=== PATIENT | female | born 1955 | race Caucasian/White ===

== ENCOUNTER 2018-02-16 09:02 | Emergency (ER) | payer MEDICAID ==
[~2018-02-16] VITALS: Ht 163.8 cm; Wt 122.6 kg
[~2018-02-16 09:02] MED LIST: ALBU18HF INH; ASPI-515 PO; ASPI-621 PO; ASPI325T80 PO; ATOR10TA9 PO; B12 COMPLEX PO; BACL-19 PO; BACL20TA PO; CIPR500T87 PO; COQ10 PO; GABA-826 PO; KETO10TA PO; MAGNESIUM PO; NAPR-685 PO; ONDA4TAB12 PO; OXYC-302 PO; OXYC-307 PO; SIMV40TA PO; TRAM50TA2 PO; VITAMIN D3 PO
[2018-02-16] MEDS ORDERED: ALBUTEROL SULFATE 2.5 MG/3 ML NPPB ONE (10:00)
[2018-02-16] MEDS ORDERED: ALBUTEROL SULFATE 2.5 MG/3 ML ONE (10:03)
[2018-02-16 10:17] LABS: BASOPHILS # (AUTO) 0.04 x10^3/uL (0-0.1); BASOPHILS % (AUTO) 1 % (0-1); EOSINOPHILS % (AUTO) 3 % (1-7); LYMPHOCYTES # (AUTO) 1.68 x10^3/uL (1-3.4); LYMPHOCYTES % (AUTO) 21 % (22-44); MD NO; MEAN CORPUSCULAR HEMOGLOBIN 29.3 pg (27.0-34.8); MEAN CORPUSCULAR HGB CONC 32.5 g/dL (32.4-35.8); MEAN CORPUSCULAR VOLUME 90.2 fL (80-100); MONOCYTES # (AUTO) 0.59 x10^3/uL (0.2-0.8); MONOCYTES % (AUTO) 7 % (2-9); NEUTROPHILS # (AUTO) 5.63 x10^3/uL (1.8-6.8); NEUTROPHILS % (AUTO) 69 % (42-75); PLATELET COUNT 324 x10^3/uL (130-400); RED BLOOD COUNT 4.86 x10^6/uL (3.82-5.3); RED CELL DISTRIBUTION WIDTH 16.9 % (9.6-15.2)
[2018-02-16 10:19] LABS: CULTURE INDICATED? YES; MICROSCOPIC INDICATED
[2018-02-16 10:29] LABS: ALBUMIN 3.2 g/dL (3.4-5.0); ANION GAP 5 mmol/L (5-15); CALCIUM 8.7 mg/dL (8.5-10.1); CHLORIDE 107 mmol/L (98-107); CREATININE 1.43 mg/dL (0.55-1.02)
[2018-02-16 10:32] LABS: TROPONIN I < 0.015 ng/mL (0.000-0.045)
[2018-02-16] MEDS ORDERED: OMNIPAQUE 350 MG/ML, 150 ML BOTTLE ONE (12:25)
[2018-02-16 13:58] VITALS: BP 134/73
== END 2018-02-16 13:56 | disposition home or self-care (01) ==
LOC: ED 12:46
DX: R07.89 Other chest pain (principal); J20.8 Acute bronchitis due to other specified organisms; B96.89 Other specified bacterial agents as the cause of diseases classified elsewhere; R82.99 Other abnormal findings in urine
CPT/HCPCS: 36415; 71046; 71275; 80048; 81001; 82040; 83880; 84484; 85025; 85379; 87040; 87077; 87086; 93005; 94640; 99285; J7512; Q9967; 87186; J7613

== ENCOUNTER 2018-08-27 04:37 | Emergency (ER) | payer MEDICAID ==
[~2018-08-27] VITALS: Ht 162.6 cm; Wt 120.0 kg
[2018-08-27 04:40] VITALS: BP 140/92
[2018-08-27] MEDS ORDERED: OXYcodone/APAP 5/325MG TABLET PO ONE (05:00)
[2018-08-27] MEDS ORDERED: OXYcodone/APAP 5/325MG TABLET ONE (05:09)
== END 2018-08-27 06:19 | disposition home or self-care (01) ==
LOC: ED 06:13
DX: S83.421A Sprain of lateral collateral ligament of right knee, initial encounter (principal); Z86.73 Personal history of transient ischemic attack (TIA), and cerebral infarction without residual deficits; X58.XXXA Exposure to other specified factors, initial encounter; Y93.89 Activity, other specified; Y99.8 Other external cause status; Y92.89 Other specified places as the place of occurrence of the external cause
CPT/HCPCS: 99284

== ENCOUNTER 2019-01-04 10:42 | Emergency (ER) | payer MEDICAID ==
[~2019-01-04] VITALS: Ht 162.6 cm; Wt 121.5 kg
[~2019-01-04 10:42] MED LIST changes: -ASPI-621 PO; +ASPI81TA45 PO
[2019-01-04 11:22] LABS: BASOPHILS # (AUTO) 0.08 x10^3/uL (0-0.1); BASOPHILS % (AUTO) 1 % (0-1); EOSINOPHILS # (AUTO) 0.32 x10^3/uL (0-0.4); EOSINOPHILS % (AUTO) 4 % (1-7); LYMPHOCYTES # (AUTO) 1.63 x10^3/uL (1-3.4); LYMPHOCYTES % (AUTO) 18 % (22-44); MD NO; MEAN CORPUSCULAR HEMOGLOBIN 29.4 pg (27.0-34.8); MEAN CORPUSCULAR VOLUME 91.8 fL (80-100); MEAN PLATELET VOLUME 8.4 fL (7.4-10.4); MONOCYTES # (AUTO) 0.55 x10^3/uL (0.2-0.8); MONOCYTES % (AUTO) 6 % (2-9); NEUTROPHILS # (AUTO) 6.44 x10^3/uL (1.8-6.8); NEUTROPHILS % (AUTO) 71 % (42-75); PLATELET COUNT 739 x10^3/uL (130-400); RED BLOOD COUNT 3.97 x10^6/uL (3.82-5.3); RED CELL DISTRIBUTION WIDTH 16.3 % (9.6-15.2)
[2019-01-04 11:30] LABS: ANION GAP 6 mmol/L (5-15); CALCIUM 9.6 mg/dL (8.5-10.1); CHLORIDE 106 mmol/L (98-107); CREATININE 1.52 mg/dL (0.55-1.02)
[2019-01-04 11:33] LABS: TROPONIN I < 0.015 ng/mL (0.000-0.045)
--- NOTE | 2019-01-04 11:40 | NUR ---
TO ROOM FROM LOBBY. NAD.
--- NOTE | 2019-01-04 11:43 | NUR ---
Pt with instructional technology facilitator in room moving from wheelchair to gurney.
--- NOTE | 2019-01-04 11:58 | NUR ---
First contact with pt. Pt resting on gurney connected to all monitors. All safety measures in place. Pt c/o abdominal pain and epigastric pain with radiation to her back for the past 2 days. Pt states she had right knee surgery recently and was consitpated earlier in the week, but last bowel movement was yesterday. Pt denies trauma, vomitting, diarrhea, fevers, cp, sob. Pt states she feels nauseated and "feels like ." No needs expressed at this time.
[2019-01-04] MEDS ORDERED: DOCU100C33 PO (12:09)
[2019-01-04] MEDS ORDERED: CEPH-368 PO (12:09)
[2019-01-04] MEDS ORDERED: ACET500T76 PO (12:09)
[2019-01-04] MEDS ORDERED: ASPI325T17 PO (12:09)
[2019-01-04] MEDS ORDERED: OXYC15TA PO (12:09)
[2019-01-04] MEDS ORDERED: DIAZ5TAB4 PO (12:09)
[2019-01-04] MEDS ORDERED: NAPR500T8 PO (12:09)
[2019-01-04] MEDS ORDERED: MAALOX/HYOSCYAMINE/LIDOCAINE 45 ML BTL ONE (12:20)
--- NOTE | 2019-01-04 12:23 | NUR ---
TASK RN: PT MED NOTED FOR EPIGASTRIC PAIN 03/03. CALL LIGHT W/I REACH, VSS.
[2019-01-04] MEDS ORDERED: MAALOX/HYOSCYAMINE/LIDOCAINE 45 ML BTL PO ONE (12:30)
[2019-01-04 12:48] LABS: BILIRUBIN, DIRECT 0.2 mg/dL (0.1-0.2); BILIRUBIN,INDIRECT 0.4 mg/dL (0.0-2.0); BILIRUBIN,TOTAL 0.6 mg/dL (0.2-1.0); TOTAL PROTEIN 8.1 g/dL (6.4-8.2)
--- NOTE | 2019-01-04 13:32 | NUR ---
Pt at ultrasound at this time.
[2019-01-04 14:33] VITALS: BP 120/75
--- NOTE | 2019-01-04 14:33 | NUR ---
Patient/Caregiver given discharge instructions and they have confirmed that they understand the instructions. Patient ambulatory with steady gait.
== END 2019-01-04 14:37 | disposition home or self-care (01) ==
LOC: ED 13:36
DX: K25.3 Acute gastric ulcer without hemorrhage or perforation (principal); Z86.73 Personal history of transient ischemic attack (TIA), and cerebral infarction without residual deficits; Z96.651 Presence of right artificial knee joint
CPT/HCPCS: 36415; 71045; 80048; 80076; 82040; 83690; 84484; 85025; 86677; 93005; 93970; 99284

== ENCOUNTER 2019-02-24 19:09 | Emergency (ER) | payer MEDICAID ==
[~2019-02-24] VITALS: Ht 162.6 cm; Wt 118.1 kg
[~2019-02-24 19:09] MED LIST changes: +ACET500T76 PO; +ASPI325T17 PO; +CEPH-368 PO; +DIAZ5TAB4 PO; +DOCU100C33 PO; +NAPR500T8 PO; +OXYC15TA PO
[2019-02-24] MEDS ORDERED: PANT40TA5 PO (19:56)
[2019-02-24] MEDS ORDERED: SUCR1TAB PO (19:56)
--- NOTE | 2019-02-24 19:59 | NUR ---
PT HERE FOR EPIGASTRIC CP WITH SOB. PT REPORTS CHEST PAIN RADIATES TO BACK. PT RECENTLY HAD KNEE SURGERY. PT OUT OF GERDS MEDICAITONS. PT DOES HAVE NAUSEA per triage note
[2019-02-24] MEDS ORDERED: SODIUM CHLORIDE FLUSH 10ML SYR IVF ONE (20:00)
[2019-02-24] MEDS ORDERED: ONDANSETRON 2MG/ML, 2ML IVPush ONE (20:00)
[2019-02-24 20:04] LABS: BASOPHILS # (AUTO) 0.04 x10^3/uL (0-0.1); BASOPHILS % (AUTO) 0 % (0-1); EOSINOPHILS # (AUTO) 0.14 x10^3/uL (0-0.4); EOSINOPHILS % (AUTO) 1 % (1-7); LYMPHOCYTES # (AUTO) 1.81 x10^3/uL (1-3.4); LYMPHOCYTES % (AUTO) 15 % (22-44); MD NO; MEAN CORPUSCULAR HGB CONC 32.7 g/dL (32.4-35.8); MEAN CORPUSCULAR VOLUME 88.6 fL (80-100); MEAN PLATELET VOLUME 8.6 fL (7.4-10.4); MONOCYTES % (AUTO) 6 % (2-9); NEUTROPHILS # (AUTO) 9.77 x10^3/uL (1.8-6.8); NEUTROPHILS % (AUTO) 78 % (42-75); PLATELET COUNT 391 x10^3/uL (130-400); RED BLOOD COUNT 4.51 x10^6/uL (3.82-5.3); RED CELL DISTRIBUTION WIDTH 16.4 % (9.6-15.2)
[2019-02-24 20:13] LABS: ALANINE AMINOTRANSFERASE 21 U/L (12-78); ALBUMIN 3.4 g/dL (3.4-5.0); ANION GAP 9 mmol/L (5-15); CALCIUM 9.4 mg/dL (8.5-10.1); CHLORIDE 107 mmol/L (98-107); CREATININE 1.57 mg/dL (0.55-1.02)
[2019-02-24 20:17] LABS: ALKALINE PHOSPHATASE 108 U/L (45-117); BILIRUBIN,TOTAL 0.6 mg/dL (0.2-1.0); TROPONIN I < 0.015 ng/mL (0.000-0.045)
[2019-02-24] MEDS ORDERED: MAALOX/HYOSCYAMINE/LIDOCAINE 45 ML BTL PO ONE (20:30)
[2019-02-24] MEDS ORDERED: MORPHINE SULFATE 4 MG/ML, 1ML IVPush PRN (20:30)
[2019-02-24] MEDS ORDERED: MAALOX/HYOSCYAMINE/LIDOCAINE 45 ML BTL ONE (21:02)
[2019-02-24] MEDS ORDERED: MORPHINE SULFATE 4 MG/ML, 1ML ONE ×2 (21:02→21:37)
[2019-02-24] MEDS ORDERED: ONDANSETRON 2MG/ML, 2ML ONE (21:02)
--- NOTE | 2019-02-24 21:14 | NUR ---
given med us at bed side
[2019-02-24] MEDS ORDERED: LORazepam 2 MG/ML, 1ML ONE (21:39)
--- NOTE | 2019-02-24 21:45 | NUR ---
given ativan iv for pt's extremely pain
[2019-02-24] MEDS ORDERED: KETOROLAC 30 MG/1 ML ONE (21:57)
[2019-02-24] MEDS ORDERED: LORazepam 2 MG/ML, 1ML IVPush ONE (22:00)
[2019-02-24] MEDS ORDERED: OMNIPAQUE 350 MG/ML, 100ML BOTTLE ONE (22:00)
[2019-02-24] MEDS ORDERED: KETOROLAC 30 MG/1 ML IVPush ONE (22:00)
--- NOTE | 2019-02-24 22:59 | NUR ---
pt is resting vss
[2019-02-24 23:28] VITALS: BP 98/56
--- NOTE | 2019-02-24 23:28 | NUR ---
given dc instruction pt understood
[2019-02-25] MEDS ORDERED: IBUP200T49 PO (18:30)
== END 2019-02-24 23:30 | disposition home or self-care (01) ==
LOC: ED 20:39
DX: K80.20 Calculus of gallbladder without cholecystitis without obstruction (principal); E66.9 Obesity, unspecified; Z68.41 Body mass index [BMI] 40.0-44.9, adult; Z98.51 Tubal ligation status; Z87.11 Personal history of peptic ulcer disease; Z86.73 Personal history of transient ischemic attack (TIA), and cerebral infarction without residual deficits
CPT/HCPCS: 36415; 71045; 71275; 76700; 80053; 83690; 84484; 85025; 93005; 96374; 96375; 99284; J1885; J2060; J2405; Q9967

== ENCOUNTER 2019-02-25 17:35 | Inpatient (IN) | payer MEDICAID ==
[~2019-02-25] VITALS: Ht 162.6 cm; Wt 112.2 kg
[~2019-02-25 17:35] MED LIST changes: +PANT40TA5 PO; +SUCR1TAB PO
[2019-02-25] MEDS ORDERED: PLEASE ENTER HEIGHT AND WEIGHT MC SCH (18:00)
[2019-02-25] MEDS ORDERED: HYDROmorphone 2 MG/ML, 1ML IVPush PRN (18:00)
[2019-02-25] MEDS ORDERED: SODIUM CHLORIDE FLUSH 10ML SYR IVF ONE ×2 (18:00→19:00)
[2019-02-25] MEDS ORDERED: ONDANSETRON 2MG/ML, 2ML IVPush ONE (18:00)
[2019-02-25] MEDS ORDERED: ONDANSETRON 2MG/ML, 2ML ONE (18:10)
[2019-02-25] MEDS ORDERED: HYDROmorphone 1 MG/ML, 1ML VIAL ONE (18:11)
[2019-02-25 18:12] LABS: BASOPHILS # (AUTO) 0.01 x10^3/uL (0-0.1); BASOPHILS % (AUTO) 0 % (0-1); EOSINOPHILS # (AUTO) 0.04 x10^3/uL (0-0.4); EOSINOPHILS % (AUTO) 0 % (1-7); LYMPHOCYTES # (AUTO) 1.25 x10^3/uL (1-3.4); LYMPHOCYTES % (AUTO) 7 % (22-44); MD NO; MEAN CORPUSCULAR HEMOGLOBIN 28.6 pg (27.0-34.8); MEAN CORPUSCULAR HGB CONC 32.3 g/dL (32.4-35.8); MEAN CORPUSCULAR VOLUME 88.4 fL (80-100); MEAN PLATELET VOLUME 9.1 fL (7.4-10.4); MONOCYTES % (AUTO) 2 % (2-9); NEUTROPHILS # (AUTO) 15.81 x10^3/uL (1.8-6.8); NEUTROPHILS % (AUTO) 90 % (42-75); PLATELET COUNT 415 x10^3/uL (130-400); RED BLOOD COUNT 4.55 x10^6/uL (3.82-5.3); RED CELL DISTRIBUTION WIDTH 16.5 % (9.6-15.2)
--- NOTE | 2019-02-25 18:14 | NUR ---
SEVERE ABD PAIN STARTING 30M AGO AFTER EATING, DIAGNOSED W/GALLSTONES YESERDAY/ REPORTS RECENT DX OF GASTRITIS/ESOPHAGITIS WELL. VOMITING. NO DIARRHEA. BM THIS AM. HAD BROTH AT NOON (6 HOURS AGO.) IN 09/02 PAIN/CRYING/HR 106. PIV STARTED AND ADMINISTERED DILAUDID/ZOFRAN
[2019-02-25 18:16] LABS: ALANINE AMINOTRANSFERASE 17 U/L (12-78); ALBUMIN 3.2 g/dL (3.4-5.0); ANION GAP 10 mmol/L (5-15); CALCIUM 9.2 mg/dL (8.5-10.1); CHLORIDE 106 mmol/L (98-107); CREATININE 1.66 mg/dL (0.55-1.02)
[2019-02-25 18:18] LABS: ALKALINE PHOSPHATASE 110 U/L (45-117); BILIRUBIN,TOTAL 0.7 mg/dL (0.2-1.0)
[2019-02-25] MEDS ORDERED: IBUP200T49 PO (18:30)
--- NOTE | 2019-02-25 18:34 | NUR ---
PROVIDER TO BEDSIDE- REQUEST 1L NS BOLUS BE STARTED-ADMINISTERED TO CHART ONCE ORDER PLACED
--- NOTE | 2019-02-25 18:55 | NUR ---
PATIENT IN CONTINUED 8/10 PAIN. CRYING/MOANING. HOWEVER, POC 84% AND BP 100/51 AFTER 1L NS. SHREDDING MACHINE OPERATOR HESISTANT TO FURTHER MEDICATE. PROVIDER MADE AWARE AND TO RE-ASSESS. PATIENT HELPED TO RE-POSITION WITH MINIMAL RELIEF. PLACED ON 2L NC FOR POX.. SIDE RAILS UPW/ CALL EMERSON IN HAND. WILL CONTINUE TO ASSESS CLOSELY
[2019-02-25] MEDS ORDERED: SODIUM CHLORIDE 0.9% 1,000ML IVBOLUS ONE (19:00)
--- NOTE | 2019-02-25 19:26 | NUR ---
REPORTS PAIN IMPROVED TO 2/10, POX 97 % ON 2L NC, B/P 95/43. HOSPITALIST (DR. BRAVO) AT BEDSIDE TO ADMIT. ON SIGNALS INTELLIGENCE SUPERINTENDENT W/ CALL EMERSON IN HAND/SIDE RAILS UP
[2019-02-25] MEDS ORDERED: CEFOTETAN PMX 2GM/50ML 50 ML IV ONE ×2 (19:30→20:30)
[2019-02-25] MEDS ORDERED: CEFOTETAN PMX 1GM/50ML 0 ML ONE (19:45)
--- NOTE | 2019-02-25 19:55 | NUR ---
ABX/MAINT IVF STARTED BY JOHNNY, PATIENT CONTINUES TO REPORT PAIN DEMINISHED TO 01/03. VSS ON 2L NC. ON MONITOR W/ CALL EMERSON IN HAND/ SIDE RAILS UP. TO WATCH FOR BED ASSIGNMENT
[2019-02-25] MEDS: SODIUM CHLORIDE 0.9% 1,000 ML IV SCH (19:57)
[2019-02-25] MEDS ORDERED: ONDANSETRON 2MG/ML, 2ML IVPush PRN (20:00)
[2019-02-25] MEDS ORDERED: morphine SULFATE 10 MG/ML, 1ML IVPush PRN (20:00)
--- NOTE | 2019-02-25 20:05 | NUR ---
DANIEL RN: PT MEDICATED PER EMAR. 5 RIGHTS ADDRESSED.
[2019-02-25 21:30] VITALS: BP 92/61
[2019-02-25] MEDS ORDERED: MORPHINE SULFATE 4 MG/ML, 1ML ONE (21:52)
[2019-02-26] VITALS (11 sets, daily range): BP systolic 84–118; BP diastolic 50–80
[2019-02-26] MEDS: SODIUM CHLORIDE 0.9% 1,000 ML IV SCH (02:00)
[2019-02-26 06:02] LABS: ANION GAP 8 mmol/L (5-15); CALCIUM 8.4 mg/dL (8.5-10.1)
[2019-02-26 06:03] LABS: CREATININE 1.57 mg/dL (0.55-1.02)
[2019-02-26 06:09] LABS: BASOPHILS # (AUTO) 0.06 x10^3/uL (0-0.1); BASOPHILS % (AUTO) 1 % (0-1); CHLORIDE 113 mmol/L (98-107); EOSINOPHILS # (AUTO) 0.11 x10^3/uL (0-0.4); EOSINOPHILS % (AUTO) 1 % (1-7); LYMPHOCYTES # (AUTO) 1.63 x10^3/uL (1-3.4); LYMPHOCYTES % (AUTO) 14 % (22-44); MD NO; MEAN CORPUSCULAR HEMOGLOBIN 28.3 pg (27.0-34.8); MEAN CORPUSCULAR HGB CONC 31.7 g/dL (32.4-35.8); MEAN CORPUSCULAR VOLUME 89.1 fL (80-100); MEAN PLATELET VOLUME 9.2 fL (7.4-10.4); MONOCYTES # (AUTO) 0.84 x10^3/uL (0.2-0.8); MONOCYTES % (AUTO) 7 % (2-9); NEUTROPHILS # (AUTO) 8.71 x10^3/uL (1.8-6.8); NEUTROPHILS % (AUTO) 77 % (42-75); PLATELET COUNT 324 x10^3/uL (130-400); RED BLOOD COUNT 3.79 x10^6/uL (3.82-5.3); RED CELL DISTRIBUTION WIDTH 16.7 % (9.6-15.2)
[2019-02-26] MEDS ORDERED: MIDAZOLAM 1 MG/ML, 2ML ONE (06:18)
[2019-02-26] MEDS ORDERED: FENTANYL PF 250 MCG/5ML ONE (06:18)
[2019-02-26] MEDS ORDERED: BUPIVACAINE/PF-EPI 0.5% 1:200K ONE (06:44)
[2019-02-26] MEDS ORDERED: SUGAMMADEX 200 MG/2 ML IVPush ONE ×2 (06:51→07:28)
[2019-02-26] MEDS ORDERED: CEFOTETAN 2 GM ONE (06:54)
[2019-02-26] MEDS ORDERED: DEXAMETHASONE 4 MG/ML, 1ML ONE (06:54)
[2019-02-26] MEDS ORDERED: ROCURONIUM 10 MG/ML,10ML ONE (06:54)
[2019-02-26] MEDS ORDERED: PHENYLEPHRINE 10 MG/ML ONE (06:54)
[2019-02-26] MEDS ORDERED: PROPOFOL 10 MG/ML, 20ML ONE (06:54)
[2019-02-26] MEDS ORDERED: ONDANSETRON 2MG/ML, 2ML ONE (06:54)
[2019-02-26] MEDS ORDERED: BUPIVACAINE/PF-EPI 0.5% 1:200K INFIL ONE (07:09)
[2019-02-26] MEDS ORDERED: ACETAMINOPHEN 325 MG TABLET PO PRN (08:00)
[2019-02-26] MEDS ORDERED: FENTANYL PF 100 MCG/2ML IV PRN (08:00)
[2019-02-26] MEDS ORDERED: MEPERIDINE/PF 25MG/0.5ML IVPush PRN (08:00)
[2019-02-26] MEDS ORDERED: ALBUTEROL SULFATE 2.5 MG/3 ML NPPB PRN (08:00)
[2019-02-26] MEDS ORDERED: HALOPERIDOL 5 MG/ML IV PRN (08:00)
[2019-02-26] MEDS ORDERED: hydrALAzine 20 MG/ML, 1ML IV PRN (08:00)
[2019-02-26] MEDS ORDERED: OXYcodone 5 MG/5 ML ORAL.SOL UDC PO PRN (08:00)
[2019-02-26] MEDS ORDERED: PROMETHAZINE 25 MG/ML, 1ML IV PRN (08:00)
[2019-02-26] MEDS ORDERED: ACETAMINOPHEN 650 MG/20.3 ML UDC ONE (08:03)
[2019-02-26] MEDS ORDERED: OXYcodone 5 MG/5 ML ORAL.SOL UDC ONE (08:10)
[2019-02-26] MEDS ORDERED: HYDROmorphone 2 MG/ML, 1ML ONE (08:20)
[2019-02-26] MEDS: HYDROmorphone 2 MG/ML, 1ML IVPush PRN ×2 (08:21→08:26)
[2019-02-26] MEDS: PANTOPRAZOLE 40 MG IV IVPush SCH (09:35)
[2019-02-26] MEDS ORDERED: HYDROcodone/APAP 5/325 TABLET PO PRN (10:30)
[2019-02-26] MEDS ORDERED: morphine SULFATE 10 MG/ML, 1ML IV PRN (10:30)
[2019-02-26] MEDS ORDERED: HYDROmorphone 2 MG/ML, 1ML IVPush PRN (10:30)
[2019-02-26] MEDS ORDERED: ONDANSETRON 2MG/ML, 2ML IV PRN (10:30)
[2019-02-26] MEDS ORDERED: IBUPROFEN 200 MG TABLET PO PRN (11:00)
[2019-02-26] MEDS: POTASSIUM CHLORIDE 20 MEQ in SODIUM CHLORIDE 0.9% 1,000 ML IV SCH ×2 (11:29→17:38)
[2019-02-26] MEDS: SUCRALFATE 1 GM TABLET PO SCH ×3 (11:29→20:06)
[2019-02-26] MEDS: OXYcodone/APAP 5/325MG TABLET PO PRN ×4 (12:19→23:02)
[2019-02-26] MEDS: CEFOTETAN PMX 1GM/50ML 50 ML IVPB SCH (18:36)
[2019-02-27 00:42] VITALS: BP 94/59
[2019-02-27] MEDS: OXYcodone/APAP 5/325MG TABLET PO PRN ×3 (03:33→15:28)
[2019-02-27] MEDS: POTASSIUM CHLORIDE 20 MEQ in SODIUM CHLORIDE 0.9% 1,000 ML IV SCH (03:33)
[2019-02-27 05:13] LABS: BASOPHILS # (AUTO) 0.01 x10^3/uL (0-0.1); BASOPHILS % (AUTO) 0 % (0-1); EOSINOPHILS % (AUTO) 0 % (1-7); LYMPHOCYTES # (AUTO) 0.84 x10^3/uL (1-3.4); LYMPHOCYTES % (AUTO) 7 % (22-44); MD NO; MEAN CORPUSCULAR HEMOGLOBIN 28.6 pg (27.0-34.8); MEAN CORPUSCULAR HGB CONC 31.8 g/dL (32.4-35.8); MEAN CORPUSCULAR VOLUME 89.9 fL (80-100); MEAN PLATELET VOLUME 9.2 fL (7.4-10.4); MONOCYTES # (AUTO) 0.65 x10^3/uL (0.2-0.8); MONOCYTES % (AUTO) 5 % (2-9); NEUTROPHILS # (AUTO) 11.25 x10^3/uL (1.8-6.8); NEUTROPHILS % (AUTO) 88 % (42-75); PLATELET COUNT 340 x10^3/uL (130-400); RED BLOOD COUNT 3.49 x10^6/uL (3.82-5.3)
[2019-02-27 05:24] LABS: ALANINE AMINOTRANSFERASE 23 U/L (12-78); ALBUMIN 2.4 g/dL (3.4-5.0); ANION GAP 5 mmol/L (5-15); CALCIUM 8.7 mg/dL (8.5-10.1); CHLORIDE 114 mmol/L (98-107); CREATININE 1.67 mg/dL (0.55-1.02)
[2019-02-27 05:26] LABS: ALKALINE PHOSPHATASE 94 U/L (45-117); BILIRUBIN,TOTAL 0.2 mg/dL (0.2-1.0); TOTAL PROTEIN 6.8 g/dL (6.4-8.2)
[2019-02-27] MEDS ORDERED: ENOXAPARIN 30 MG/0.3 ML SQ SCH (06:00)
[2019-02-27] MEDS ORDERED: ENOXAPARIN 40 MG/0.4 ML SQ SCH (06:00)
[2019-02-27] MEDS: SUCRALFATE 1 GM TABLET PO SCH ×2 (06:12→11:04)
[2019-02-27] MEDS: CEFOTETAN PMX 1GM/50ML 50 ML IVPB SCH (06:13)
[2019-02-27 07:45] VITALS: BP 106/72
[2019-02-27] MEDS: PANTOPRAZOLE 40 MG IV IVPush SCH (08:36)
[2019-02-27 14:57] VITALS: BP 99/65
[2019-02-27] MEDS ORDERED: DOCU-131 PO (15:35)
[2019-02-27] MEDS ORDERED: OXYC1TAB7 PO (15:35)
== END 2019-02-27 17:20 | disposition home or self-care (01) | DRG 418 ==
LOC: ED 19:44 → EDIP 21:31 → 4EST 21:46
PROVIDERS: ADMIT Internal Medicine; ATTEND Internal Medicine
PROC: 0FT44ZZ Resection of Gallbladder, Percutaneous Endoscopic Approach (ICD-10-PCS; principal; 2019-02-26 10:30)
DX: K80.00 Calculus of gallbladder with acute cholecystitis without obstruction (principal); Z68.41 Body mass index [BMI] 40.0-44.9, adult; E66.01 Morbid (severe) obesity due to excess calories; G89.29 Other chronic pain; K22.4 Dyskinesia of esophagus; K27.9 Peptic ulcer, site unspecified, unspecified as acute or chronic, without hemorrhage or perforation; Z96.653 Presence of artificial knee joint, bilateral; L40.9 Psoriasis, unspecified; N18.9 Chronic kidney disease, unspecified; Z86.73 Personal history of transient ischemic attack (TIA), and cerebral infarction without residual deficits; Z87.39 Personal history of other diseases of the musculoskeletal system and connective tissue; Z87.442 Personal history of urinary calculi; Z87.820 Personal history of traumatic brain injury; Z88.0 Allergy status to penicillin; Z98.84 Bariatric surgery status
CPT/HCPCS: 36415; J3490; 80048; 80053; 83690; 85025; 88304; 93005; 96365; 96375; G0378; J1100; J1170; J1650; J2250; J2405; J2704; J3010; J3480; C1760; C9113; J2370; J7030

== ENCOUNTER 2019-03-30 09:19 | Inpatient (IN) | payer MEDICAID ==
[~2019-03-30] VITALS: Ht 162.6 cm; Wt 113.0 kg
[~2019-03-30 09:19] MED LIST changes: +DOCU-131 PO; +IBUP200T49 PO; +OXYC1TAB7 PO
--- NOTE | 2019-03-30 09:43 | NUR ---
EPIGASTRIC PAIN RADIATING TO BACK YESTERDAY. THIS MORNING LLQ PAIN RAIDIATING TO SIDE AND BACK, NAUSEA
[2019-03-30] MEDS ORDERED: ONDANSETRON 2MG/ML, 2ML ONE (09:49)
[2019-03-30] MEDS ORDERED: MORPHINE SULFATE 4 MG/ML, 1ML ONE ×3 (09:49→14:39)
[2019-03-30] MEDS: MORPHINE SULFATE 4 MG/ML, 1ML IVPush PRN ×2 (09:57→10:59)
[2019-03-30] MEDS ORDERED: SODIUM CHLORIDE FLUSH 10ML SYR IVF ONE (10:00)
[2019-03-30] MEDS ORDERED: ONDANSETRON 2MG/ML, 2ML IVPush ONE (10:00)
--- NOTE | 2019-03-30 10:02 | NUR ---
MEDICATED FOR PAIN AND NAUSEA PER ORDERS
[2019-03-30 10:04] LABS: BASOPHILS # (AUTO) 0.05 x10^3/uL (0-0.1); BASOPHILS % (AUTO) 1 % (0-1); EOSINOPHILS # (AUTO) 0.13 x10^3/uL (0-0.4); EOSINOPHILS % (AUTO) 1 % (1-7); LYMPHOCYTES # (AUTO) 2.14 x10^3/uL (1-3.4); LYMPHOCYTES % (AUTO) 24 % (22-44); MD NO; MEAN CORPUSCULAR HEMOGLOBIN 27.9 pg (27.0-34.8); MEAN CORPUSCULAR HGB CONC 32.8 g/dL (32.4-35.8); MEAN PLATELET VOLUME 9.2 fL (7.4-10.4); MONOCYTES # (AUTO) 0.36 x10^3/uL (0.2-0.8); MONOCYTES % (AUTO) 4 % (2-9); NEUTROPHILS # (AUTO) 6.37 x10^3/uL (1.8-6.8); NEUTROPHILS % (AUTO) 70 % (42-75); PLATELET COUNT 308 x10^3/uL (130-400); RED BLOOD COUNT 4.84 x10^6/uL (3.82-5.3); RED CELL DISTRIBUTION WIDTH 16.9 % (9.6-15.2)
[2019-03-30 10:13] LABS: INTERNATIONAL NORMALIZED RATIO 1.09 (0.93-1.1); PROTHROMBIN TIME 11.4 Seconds (9.6-11.5)
[2019-03-30 10:15] LABS: ALBUMIN 3.2 g/dL (3.4-5.0); ANION GAP 8 mmol/L (5-15); CALCIUM 8.7 mg/dL (8.5-10.1); CHLORIDE 108 mmol/L (98-107)
[2019-03-30 10:20] LABS: ALANINE AMINOTRANSFERASE 24 U/L (12-78); ALKALINE PHOSPHATASE 115 U/L (45-117); BILIRUBIN,TOTAL 0.5 mg/dL (0.2-1.0); CREATININE 1.45 mg/dL (0.55-1.02); TOTAL PROTEIN 8.2 g/dL (6.4-8.2); TROPONIN I < 0.015 ng/mL (0.000-0.045)
--- NOTE | 2019-03-30 10:59 | NUR ---
BREAK NOTE: PT. RETURNS FROM XRAY. CONTINUED PAIN. PT. WAS MEDICATED ORDERED. PT. WAS PLACED ON THE PULSE OX AND BP CUFF. VP SITE REMAINS IN PLACE. PT.'S HOB IS ELEVATED GREATER THAN 30 DEGREES.
--- NOTE | 2019-03-30 11:15 | NUR ---
2/10 PAIN AFTER SECOND DOSE OF PAIN MEDS. TO RADIOLOGY
[2019-03-30] MEDS ORDERED: OMNIPAQUE 350 MG/ML, 150 ML BOTTLE ONE (11:38)
--- NOTE | 2019-03-30 11:42 | NUR ---
ON RETURN FROM CT AMBULATED ACROSS [place] TO ATTEMPT TO GIVE URINE SAMPLE. PT CONTINUES TO HAVE LEFT ABDOMINAL PAIN BUT IMPROVED SINCE ARRIVAL
[2019-03-30] MEDS ORDERED: SODIUM CHLORIDE 0.9% 1,000 ML IV ONE (13:00)
[2019-03-30] MEDS ORDERED: CEFTRIAXONE PMX 2GM/50ML 50 ML IV ONE (13:30)
[2019-03-30] MEDS ORDERED: METRONIDAZOLE PMX 500MG/100ML 100 ML IV ONE (13:30)
[2019-03-30] MEDS ORDERED: CEFTRIAXONE PMX 2GM/50ML 50 ML ONE (14:01)
--- NOTE | 2019-03-30 14:12 | NUR ---
UOB TO BATHROOM. ON RETURN ANTIBIOTICS STARTED. PT STATES INCREASE IN ABDOMINAL PAIN 5/10
[2019-03-30] MEDS ORDERED: METRONIDAZOLE PMX 500MG/100ML 100 ML ONE (14:38)
--- NOTE | 2019-03-30 14:52 | NUR ---
REMEDICATED FOR INCREASING LEFT ABDOMINAL PAIN
[2019-03-30] MEDS ORDERED: MORPHINE SULFATE 4 MG/ML, 1ML IVPush PRN (15:00)
[2019-03-30 15:21] LABS: MICROSCOPIC AUTO
[2019-03-30 15:31] LABS: CULTURE INDICATED? YES
--- NOTE | 2019-03-30 16:05 | NUR ---
REPORT TO ROSY HOWARD. PT TO BE TRANSFERRED TO FLOOR
[2019-03-30] MEDS ORDERED: ONDANSETRON ODT 4 MG PO PRN (16:30)
[2019-03-30] MEDS ORDERED: morphine SULFATE 10 MG/ML, 1ML IVPush PRN (16:30)
[2019-03-30] MEDS ORDERED: ONDANSETRON 2MG/ML, 2ML IVPush PRN (16:30)
[2019-03-30] MEDS ORDERED: hydrALAzine 20 MG/ML, 1ML IVPush PRN (16:30)
[2019-03-30] MEDS ORDERED: PROMETHAZINE 25 MG/ML, 1ML IM PRN (16:30)
[2019-03-30] MEDS ORDERED: PANTOPRAZOLE 80 MG in SODIUM CHLORIDE 0.9% 50 ML IV ONE (16:30)
[2019-03-30 16:45] VITALS: BP 122/84
[2019-03-30 16:58] LABS: FREE T4 (FREE THYROXINE) 1.38 ng/dL (0.76-1.46); THYROID STIMULATING HORMONE 4.09 mIU/L (0.358-3.740)
[2019-03-30 17:12] LABS: HEMOGLOBIN A1C 5.6 % (4.2-6.3)
[2019-03-30] MEDS: SODIUM CHLORIDE 0.9% 1,000 ML IV SCH (17:16)
[2019-03-30] MEDS: OXYcodone IR 5MG TABLET PO PRN ×2 (18:02→22:23)
[2019-03-30] MEDS: PANTOPRAZOLE 80 MG in SODIUM CHLORIDE 0.9% 100 ML IV SCH (18:03)
[2019-03-30 19:40] VITALS: BP 99/68
[2019-03-30] MEDS ORDERED: ENOXAPARIN 40 MG/0.4 ML SQ SCH (21:00)
[2019-03-30] MEDS: METRONIDAZOLE PMX 500MG/100ML 100 ML IV SCH (22:23)
[2019-03-31] MEDS: PANTOPRAZOLE 80 MG in SODIUM CHLORIDE 0.9% 100 ML IV SCH ×2 (00:20→13:18)
[2019-03-31 02:25] VITALS: BP 93/60
[2019-03-31] MEDS: SODIUM CHLORIDE 0.9% 1,000 ML IV SCH ×2 (04:34→13:37)
[2019-03-31] MEDS: OXYcodone IR 5MG TABLET PO PRN ×3 (04:34→19:55)
[2019-03-31] MEDS: DOCUSATE 100 MG CAPSULE PO PRN (04:34)
[2019-03-31 04:36] LABS: MD NO; MEAN CORPUSCULAR HGB CONC 32.1 g/dL (32.4-35.8)
[2019-03-31 04:50] LABS: BASOPHILS # (AUTO) 0.04 x10^3/uL (0-0.1); BASOPHILS % (AUTO) 0 % (0-1); EOSINOPHILS # (AUTO) 0.17 x10^3/uL (0-0.4); EOSINOPHILS % (AUTO) 2 % (1-7); LYMPHOCYTES # (AUTO) 1.64 x10^3/uL (1-3.4); LYMPHOCYTES % (AUTO) 19 % (22-44); MEAN CORPUSCULAR HEMOGLOBIN 27.4 pg (27.0-34.8); MEAN CORPUSCULAR VOLUME 85.5 fL (80-100); MEAN PLATELET VOLUME 9.3 fL (7.4-10.4); MONOCYTES # (AUTO) 0.87 x10^3/uL (0.2-0.8); MONOCYTES % (AUTO) 10 % (2-9); NEUTROPHILS # (AUTO) 5.85 x10^3/uL (1.8-6.8); NEUTROPHILS % (AUTO) 68 % (42-75); PLATELET COUNT 262 x10^3/uL (130-400); RED BLOOD COUNT 4.07 x10^6/uL (3.82-5.3); RED CELL DISTRIBUTION WIDTH 17.1 % (9.6-15.2)
[2019-03-31 04:50] LABS: ALBUMIN 2.6 g/dL (3.4-5.0); ANION GAP 3 mmol/L (5-15); CALCIUM 8.3 mg/dL (8.5-10.1); CHLORIDE 116 mmol/L (98-107)
[2019-03-31 04:54] LABS: ALANINE AMINOTRANSFERASE 37 U/L (12-78); ALKALINE PHOSPHATASE 97 U/L (45-117); BILIRUBIN,TOTAL 0.4 mg/dL (0.2-1.0); CHOL/HDL RATIO 3.1; CHOLESTEROL, TOTAL 141 mg/dL (140-239); CREATININE 1.48 mg/dL (0.55-1.02); HDL CHOL % 33 % (28-40); HDL CHOLESTEROL (DIRECT) 46 mg/dL (40-60); LDL CHOLESTEROL,CALCULATED 82 mg/dL (54-169); LDL/HDL RATIO 1.8 (0.5-3.0); TOTAL PROTEIN 6.8 g/dL (6.4-8.2); TRIGLYCERIDES 63 mg/dL (50-200); VLDL CHOLESTEROL 13 mg/dL (0-25)
[2019-03-31] MEDS: METRONIDAZOLE PMX 500MG/100ML 100 ML IV SCH ×3 (06:36→23:02)
[2019-03-31 07:30] VITALS: BP 104/67
[2019-03-31] MEDS ORDERED: PANTOPRAZOLE 40 MG IV IVPush SCH (09:00)
[2019-03-31] MEDS: CEFTRIAXONE PMX 2GM/50ML 50 ML IV SCH (13:37)
[2019-03-31] MEDS: ACETAMINOPHEN 325 MG TABLET PO PRN ×2 (13:49→22:04)
[2019-03-31 14:37] VITALS: BP 100/64
[2019-03-31 19:50] VITALS: BP 111/74
[2019-04-01] MEDS: PANTOPRAZOLE 80 MG in SODIUM CHLORIDE 0.9% 100 ML IV SCH ×3 (00:21→21:35)
[2019-04-01 01:45] VITALS: BP 91/60
[2019-04-01] MEDS: DOCUSATE 100 MG CAPSULE PO PRN (05:32)
[2019-04-01] MEDS: OXYcodone IR 5MG TABLET PO PRN ×3 (05:33→18:35)
[2019-04-01] MEDS: METRONIDAZOLE PMX 500MG/100ML 100 ML IV SCH ×3 (06:44→22:35)
[2019-04-01] MEDS: ACETAMINOPHEN 325 MG TABLET PO PRN ×3 (08:43→21:35)
[2019-04-01] MEDS: ENOXAPARIN 40 MG/0.4 ML SQ SCH (08:44)
[2019-04-01 08:46] VITALS: BP 114/73
[2019-04-01 13:10] VITALS: BP 102/69
[2019-04-01] MEDS: CEFTRIAXONE PMX 2GM/50ML 50 ML IV SCH (13:51)
[2019-04-01 20:15] VITALS: BP 118/79
[2019-04-02 00:28] VITALS: BP 109/73
[2019-04-02] MEDS: OXYcodone IR 5MG TABLET PO PRN ×4 (00:31→19:52)
[2019-04-02] MEDS: ACETAMINOPHEN 325 MG TABLET PO PRN ×2 (02:15→14:09)
[2019-04-02] MEDS: METRONIDAZOLE PMX 500MG/100ML 100 ML IV SCH ×3 (06:27→22:02)
[2019-04-02 07:42] VITALS: BP 105/67
[2019-04-02] MEDS: PANTOPRAZOLE 80 MG in SODIUM CHLORIDE 0.9% 100 ML IV SCH ×2 (08:26→20:39)
[2019-04-02] MEDS: DOCUSATE 100 MG CAPSULE PO PRN (08:26)
[2019-04-02] MEDS: ENOXAPARIN 40 MG/0.4 ML SQ SCH (08:26)
[2019-04-02] MEDS: CEFTRIAXONE PMX 2GM/50ML 50 ML IV SCH (14:04)
[2019-04-02 14:13] VITALS: BP 101/68
[2019-04-02 19:41] VITALS: BP 110/71
[2019-04-03 01:00] VITALS: BP 117/72
[2019-04-03] MEDS: OXYcodone IR 5MG TABLET PO PRN ×4 (01:02→19:30)
[2019-04-03] MEDS: ACETAMINOPHEN 325 MG TABLET PO PRN ×4 (01:48→19:35)
[2019-04-03] MEDS: METRONIDAZOLE PMX 500MG/100ML 100 ML IV SCH ×3 (06:53→22:42)
[2019-04-03] MEDS: PANTOPRAZOLE 80 MG in SODIUM CHLORIDE 0.9% 100 ML IV SCH ×2 (06:53→21:43)
[2019-04-03 07:44] VITALS: BP 123/67
[2019-04-03] MEDS: ENOXAPARIN 40 MG/0.4 ML SQ SCH (10:27)
[2019-04-03 13:01] VITALS: BP 131/81
[2019-04-03] MEDS: CEFTRIAXONE PMX 2GM/50ML 50 ML IV SCH (14:48)
[2019-04-03] MEDS: ENOXAPARIN 30 MG/0.3 ML SQ SCH (15:56)
[2019-04-03 19:38] VITALS: BP 124/78
[2019-04-04] MEDS: ACETAMINOPHEN 325 MG TABLET PO PRN ×4 (00:37→18:29)
[2019-04-04] MEDS: OXYcodone IR 5MG TABLET PO PRN ×4 (00:37→18:29)
[2019-04-04 01:56] VITALS: BP 101/66
[2019-04-04] MEDS: METRONIDAZOLE PMX 500MG/100ML 100 ML IV SCH ×2 (06:23→15:53)
[2019-04-04 07:01] VITALS: BP 120/77
[2019-04-04] MEDS: ENOXAPARIN 30 MG/0.3 ML SQ SCH ×2 (09:36→20:10)
[2019-04-04 12:53] VITALS: BP 116/75
[2019-04-04] MEDS: CEFTRIAXONE PMX 2GM/50ML 50 ML IV SCH (15:09)
[2019-04-04] MEDS: DOCUSATE 100 MG CAPSULE PO PRN (18:31)
[2019-04-04 19:59] VITALS: BP 125/82
[2019-04-05] MEDS: METRONIDAZOLE PMX 500MG/100ML 100 ML IV SCH ×2 (00:38→08:27)
[2019-04-05] MEDS: OXYcodone IR 5MG TABLET PO PRN ×3 (00:46→13:24)
[2019-04-05] MEDS: ACETAMINOPHEN 325 MG TABLET PO PRN ×3 (00:51→13:24)
[2019-04-05 01:11] VITALS: BP 119/78
[2019-04-05] MEDS ORDERED: PANTOPRAZOLE 80 MG in SODIUM CHLORIDE 0.9% 100 ML IV SCH (04:30)
[2019-04-05 04:33] LABS: BASOPHILS # (AUTO) 0.03 x10^3/uL (0-0.1); BASOPHILS % (AUTO) 1 % (0-1); EOSINOPHILS # (AUTO) 0.43 x10^3/uL (0-0.4); EOSINOPHILS % (AUTO) 7 % (1-7); LYMPHOCYTES # (AUTO) 1.52 x10^3/uL (1-3.4); LYMPHOCYTES % (AUTO) 25 % (22-44); MD NO; MEAN CORPUSCULAR HEMOGLOBIN 27.5 pg (27.0-34.8); MEAN CORPUSCULAR HGB CONC 32.7 g/dL (32.4-35.8); MEAN PLATELET VOLUME 8.7 fL (7.4-10.4); MONOCYTES # (AUTO) 0.51 x10^3/uL (0.2-0.8); MONOCYTES % (AUTO) 9 % (2-9); NEUTROPHILS # (AUTO) 3.57 x10^3/uL (1.8-6.8); NEUTROPHILS % (AUTO) 59 % (42-75); PLATELET COUNT 329 x10^3/uL (130-400); RED BLOOD COUNT 3.73 x10^6/uL (3.82-5.3); RED CELL DISTRIBUTION WIDTH 17.6 % (9.6-15.2)
[2019-04-05 04:49] LABS: ANION GAP 10 mmol/L (5-15); CALCIUM 8.6 mg/dL (8.5-10.1); CHLORIDE 108 mmol/L (98-107); CREATININE 1.05 mg/dL (0.55-1.02)
[2019-04-05 07:04] VITALS: BP 138/76
[2019-04-05] MEDS: ENOXAPARIN 30 MG/0.3 ML SQ SCH (08:28)
[2019-04-05] MEDS: DOCUSATE 100 MG CAPSULE PO PRN (08:47)
[2019-04-05] MEDS ORDERED: METR500T PO (10:28)
[2019-04-05] MEDS ORDERED: OXYC5TAB3 PO (10:28)
[2019-04-05] MEDS ORDERED: SENN-177 PO (10:28)
[2019-04-05] MEDS ORDERED: CEFD300C37 PO (10:28)
[2019-04-05] MEDS ORDERED: PANT40TA5 PO (10:28)
[2019-04-05] MEDS ORDERED: OXYC-302 PO (10:32)
== END 2019-04-05 14:00 | disposition home or self-care (01) | DRG 380 ==
LOC: ED 10:36 → EDIP 15:31 → 3NW 16:21
PROVIDERS: ADMIT Internal Medicine; ATTEND Internal Medicine
DX: K26.5 Chronic or unspecified duodenal ulcer with perforation (principal); N17.0 Acute kidney failure with tubular necrosis; K65.9 Peritonitis, unspecified; N39.0 Urinary tract infection, site not specified; E44.0 Moderate protein-calorie malnutrition; Z68.41 Body mass index [BMI] 40.0-44.9, adult; J98.11 Atelectasis; I95.9 Hypotension, unspecified; B96.20 Unspecified Escherichia coli [E. coli] as the cause of diseases classified elsewhere; G89.4 Chronic pain syndrome; Z96.653 Presence of artificial knee joint, bilateral; L40.9 Psoriasis, unspecified; E66.01 Morbid (severe) obesity due to excess calories; M19.90 Unspecified osteoarthritis, unspecified site; M54.9 Dorsalgia, unspecified; N18.3 Chronic kidney disease, stage 3 (moderate); Z87.11 Personal history of peptic ulcer disease; Z90.49 Acquired absence of other specified parts of digestive tract; Z88.0 Allergy status to penicillin; Z86.73 Personal history of transient ischemic attack (TIA), and cerebral infarction without residual deficits; Z83.3 Family history of diabetes mellitus; Z87.442 Personal history of urinary calculi; Z98.84 Bariatric surgery status
CPT/HCPCS: 36415; 71275; 74022; 74177; 80048; 80053; 80061; 81001; 83036; 83690; 83735; 84100; 84439; 84443; 84484; 85025; 85610; 85730; 87077; 87086; 87186; 93005; 96374; 96375; 96376; G0378; J0696; J1650; J2405; Q9967; C9113; J7030

== ENCOUNTER 2019-06-13 12:36 | Inpatient (IN) | payer MEDICAID ==
[~2019-06-13] VITALS: Ht 163.8 cm; Wt 106.8 kg
[2019-06-16 08:25] VITALS: BP 96/68
== END 2019-06-16 15:25 | disposition home or self-care (01) | DRG 62 ==
LOC: ED 14:00 → CCU 14:07 → 4WST 06-15 13:47
PROVIDERS: ADMIT Internal Medicine; ATTEND Internal Medicine
DX: I63.9 Cerebral infarction, unspecified (principal); G81.94 Hemiplegia, unspecified affecting left nondominant side; I13.0 Hypertensive heart and chronic kidney disease with heart failure and stage 1 through stage 4 chronic kidney disease, or unspecified chronic kidney disease; I50.30 Unspecified diastolic (congestive) heart failure; G89.29 Other chronic pain; M54.9 Dorsalgia, unspecified; K22.4 Dyskinesia of esophagus; Z88.0 Allergy status to penicillin; L40.9 Psoriasis, unspecified; N18.3 Chronic kidney disease, stage 3 (moderate); Z87.11 Personal history of peptic ulcer disease; Z91.19 Patient's noncompliance with other medical treatment and regimen; Z96.653 Presence of artificial knee joint, bilateral; Z98.84 Bariatric surgery status; Z90.49 Acquired absence of other specified parts of digestive tract; Z79.82 Long term (current) use of aspirin
CPT/HCPCS: 36415; 70450; 70496; 70498; 70551; 80047; 80048; 80053; 80061; 82962; 84443; 85025; 85610; 85730; 87081; 93005; 93306; 96365; 96375; G0378; J2997; Q9967; C9113; J2060; J7030